=== PATIENT | female | born 1960 | race Caucasian/White ===

== ENCOUNTER 2016-11-06 00:42 | Inpatient (IN) | payer MEDICARE, OTHER ==
--- NOTE | ~2016-11-06 | DS ---
Discharge Summary [facility] [address] [place]. [address] NAME: JAUN LOCKHART : 56 STATUS : DIS IN PAT#: [id number] AGE: 56 ADM/REG DATE : 11/06/16 MR#: [id number] REPORT SERV DATE: 11/10/16 DICTATED BY: JR. BENNETT WILLIAM JOHN DATE: 11/09/16 REPORT STATUS : Draft TRANSCRIBED BY: TORIN DATE: 11/09/16 ADMISSION DATE: 11/06/2016 DISCHARGE DATE: 11/09/2016 DISCHARGE DIAGNOSES: 1. Partial small bowel obstruction with history of multiple abdominal surgeries. 2. Chest pain secondary to bowel obstruction. 3. Hypoxic respiratory failure with a history of smoking and congestion. 4. Essential hypertension. 5. Noninsulin requiring diabetes mellitus with neuropathy and right great toe ulcer without evidence of infection deep to the bone. 6. Hypokalemia. OPERATIONS/PROCEDURES AND TREATMENTS: Include: 1. Abdominal CT done 11/06/2016, which showed appropriate position of enteric tube. There was suspected fluid-filled small bowel, without overlying gaseous distended small bowel loops that are not significantly changed from prior CT done 10 hours earlier when there was fluid filled small bowel loops that appeared mildly obstructed. 2. Chest x-ray done 11/06/2016 showed no evidence of acute issues. 3. CT of the abdomen and pelvis which showed early or partial small bowel obstruction involving proximal intestine with transition point in left upper quadrant. There is well-circumscribed fluid-filled density measuring 4.4 cm in the right breast. There are bilateral renal cysts. 4. CT angiogram done 11/06/2016, which showed no pulmonary embolism with a mild degree of pulmonary venous hypertension. There is a cystic lesion in the right breast and NG tube in place. 5. KUB done 11/06/2016, which showed NG tube in good position. 6. Small-bowel follow-through done 11/06/2016 which showed mildly distended proximal small bowel loops; however, there was no functional obstruction demonstrated in the colon which was reached within 45 minutes. 7. Flat and upright abdominal x-ray done 11/07/2016, which showed a nonspecific gas pattern with contrast throughout the colon. DISCHARGE MEDICATIONS: Include: 1. Xanax 1 mg orally three times a day. 2. Aspirin 325 mg orally daily. 3. Lipitor 10 mg orally daily. 4. Benazepril 40 mg orally twice a day. 5. Coreg 25 mg orally twice a day. 6. Flexeril 10 mg every eight hours. 7. Zetia 10 mg orally at bedtime. 8. Morphine SR 30 mg orally three times a day. 9. Immediate release morphine 15 mg as needed for breakthrough pain. 10.Lyrica 150 mg orally daily. 11.Hydralazine 25 mg orally three times a day. 12.Janumet 50/500 one tablet twice a day. Discharge Summary [address] [address] NAME: JAUN LOCKHART : 56 STATUS : DIS IN PAT#: [id number] AGE: 56 ADM/REG DATE : 11/06/16 MR#: [id number] REPORT SERV DATE: 11/10/16 DICTATED BY: JR. BENNETT WILLIAM JOHN DATE: 11/09/16 REPORT STATUS : Draft TRANSCRIBED BY: TORIN DATE: 11/09/16 13.Nexium 40 mg orally daily. 14.Nitroglycerin as needed. 15.Mucinex 1200 mg orally twice a day for 14 days. 16.Combivent two puffs four times a day for one month. HOSPITAL COURSE: The patient is a 56-year-old white female with a history of multiple abdominal surgeries, who presented to the emergency room with complaint of chest pain, abdominal pain, nausea, and vomiting. The patient stated that several days prior she had been in considerable discomfort from sinus congestion and pressure as well as sinus headache. She got rid of that on Saturday night and then awakened Saturday morning with severe epigastric and left upper quadrant pain with radiation to the umbilicus associated with nausea, vomiting, and subsequently substernal and left-sided chest pain. Initial evaluation in the emergency room showed nonischemic EKG with negative cardiac enzymes. CT of the abdomen and pelvis as detailed above. For full details of the presenting history, physical, and presenting data, please see Dr. Velásquez's most excellent dictated history and physical. The patient was admitted to the hospital for a small-bowel obstruction. She had an NG tube placed to low intermittent wall suction, was seen by General Surgery, and subsequently underwent a small-bowel follow-through, which showed no evidence of obstruction. The patient's diet was gradually increased. She tolerated the diet, had no further issues. At discharge, the patient is tolerating an ADA diet without difficulty. Regarding the chest pain, this resolved with NG tube placement and decompression. She had serial cardiac enzymes all of which were negative and had no further complaints of this after the NG and decompression were completed. Regarding the patient's diabetes and toe ulcer, the right great toe does have a plantar ulcer that is deep to the bone. There is no evidence of infection. [facility], and I will defer further management to them. Regarding hypoxic respiratory failure, the patient has a history of smoking as well as an upper respiratory infection. She was on oxygen throughout good portion of the hospitalization but with good pulmonary hygiene including incentive spirometry and mucolytics as well as bronchodilators. The patient was saturating at 94% on room air. She will be discharged home with Mucinex and Combivent for short-term use. The patient will be discharged home today 11/09/2016. She will [facility] up with [facility] as scheduled. Follow up with Dr. Robertson, whom she identifies as her primary care physician. DISCHARGE DIET: ADA. ACTIVITY: As tolerated. For discharge exam and laboratory, please see daily progress note. This discharge took 32 minutes for patient encounter, coordination of care, and Discharge Summary [address] [address] NAME: JAUN LOCKHART : 56 STATUS : DIS IN PAT#: [id number] AGE: 56 ADM/REG DATE : 11/06/16 MR#: [id number] REPORT SERV DATE: 11/10/16 DICTATED BY: JR. BENNETT WILLIAM JOHN DATE: 11/09/16 REPORT STATUS : Draft TRANSCRIBED BY: TORIN DATE: 11/09/16 documentation. WJF/TORIN Fito Bennett Jr, MD / [id number] CC: Fito Bennett Jr, MD Oana L. Andreescu, M.D.
--- NOTE | ~2016-11-06 | HP ---
History And Physical [facility] [address] [place]. [address] NAME: JAUN LOCKHART : 56 STATUS : REG ER PAT#: [id number] AGE: 56 ADM/REG DATE : 11/06/16 MR#: [id number] REPORT SERV DATE: 11/06/16 DICTATED BY: MARTA BAZZI DATE: 11/06/16 REPORT STATUS : Draft TRANSCRIBED BY: MODBear DATE: 11/06/16 DATE OF ADMISSION: 11/06/2016 POINT OF ENTRY: [facility] Emergency Department. CHIEF COMPLAINT: Chest pain, abdominal pain, nausea, and vomiting. HISTORY OF PRESENT ILLNESS: Ms Lockhart is a 56-year-old female with a history of coronary artery disease with prior coronary artery bypass grafting; peripheral vascular disease; non- insulin-dependent diabetes mellitus, type 2; chronic pain on chronic narcotics, who presents to the emergency department today with multiple complaints including chest pain, abdominal pain, as well as nausea and vomiting. The patient states that on Saturday she had a considerable discomfort from some sinus congestion and pressure as well as the related sinus headache. She finally got rid of that on Saturday night. Upon awakening Saturday morning she had severe epigastric and left upper quadrant abdominal pain with radiation to around the umbilicus with associated nausea and vomiting. The patient also reports that she subsequently developed substernal and left- sided chest pain, as well as pressure with radiation to her back between her shoulder blades. The patient reports her last bowel movement was on Saturday, but was continued to pass flatus throughout the day on Saturday. Initial evaluation in the emergency department notable for an EKG as well as cardiac enzymes that were nonischemic. Labs were unremarkable except for a mild white count elevation of 12,700. CT scan of the abdomen and pelvis showed an early developing partial small bowel obstruction as well as a fluid density of the right breast soft tissue, subsequently an NG tube was placed and greater than 1.5 L of fluid have been removed. The patient states that subsequent to NG tube placement and gastric decompression, the patient's chest and abdominal pain have now completely resolved as her nausea and vomiting. REVIEW OF SYSTEMS: Comprehensive review of systems otherwise negative unless listed in history of present illness. The patient's specifically denies any recent fevers, night sweats, chills, cough, sputum production, shortness of breath, diarrhea, constipation, dysuria, lower extremity edema, melena, hematochezia, or hemoptysis. PREVIOUS MEDICAL HISTORY: 1. Coronary artery disease with prior coronary artery bypass grafting. 2. Breast cancer, status post right lumpectomy. 3. Mkn-atcjkno-izydtspjz mellitus type 2. 4. Diabetic peripheral neuropathy. 5. Chronic diabetic foot ulcer. 6. Chronic kidney disease, stage 3. 7. Osteoarthritis. 8. Degenerative disk disease. 9. Chronic pain on chronic narcotics. History And Physical [address] [address] NAME: JAUN LOCKHART : 56 STATUS : REG ER PAT#: [id number] AGE: 56 ADM/REG DATE : 11/06/16 MR#: [id number] REPORT SERV DATE: 11/06/16 DICTATED BY: MARTA BAZZI DATE: 11/06/16 REPORT STATUS : Draft TRANSCRIBED BY: TORIN DATE: 11/06/16 10.Peripheral vascular disease. 11.Gastroesophageal reflux disease. SURGICAL HISTORY: 1. Coronary artery bypass grafting. 2. Right femoral bypass. 3. Sinus surgery. 4. Abdominal hysterectomy. 5. Tonsillectomy. 6. Cholecystectomy. 7. Right breast lumpectomy. 8. Coronary artery bypass grafting. ALLERGIES: 1. AUGMENTIN. 2. MORPHINE AND BETA. 3. CEFPROZIL. 4. CODEINE. 5. HYDROCODONE. HOME MEDICATIONS: 1. Xanax 1 mg t.i.d. 2. Aspirin 325 mg daily. 3. Atorvastatin 10 mg q.h.s. 4. Benazepril 40 mg b.i.d. 5. Carvedilol 25 mg b.i.d. 6. Flexeril 10 mg q.8 hours. 7. Nexium 40 mg daily. 8. Zetia 10 mg q.h.s. 9. Hydralazine 25 mg t.i.d. 10.Probiotic one tablet daily. 11.MS Contin 30 mg t.i.d. 12.Morphine Immediate Release 15 mg daily p.r.n. 13.Lyrica 150 mg q.h.s. 14.Janumet 50-500 mg one tablet b.i.d. 15.Nitroglycerin sublingual p.r.n. SOCIAL HISTORY: Still continues to smoke about five cigarettes a day. Denies any alcohol. Denies any illicits. FAMILY MEDICAL HISTORY: Mother with diabetes and coronary artery disease. Father with Alzheimer's and hypertension. Siblings with hypertension. LABS AND IMAGIN. White count is 12.7, hemoglobin is 16.1, hematocrit is 47.4, platelet count 304, and INR 1.0. 2. Sodium is 139, potassium 3.9, chloride 101, carbon dioxide 26, BUN 9, creatinine 1.12, History And Physical [address] [address] NAME: JAUN LOCKHART : 56 STATUS : REG ER PAT#: [id number] AGE: 56 ADM/REG DATE : 11/06/16 MR#: [id number] REPORT SERV DATE: 11/06/16 DICTATED BY: MARTA BAZZI DATE: 11/06/16 REPORT STATUS : Draft TRANSCRIBED BY: MODBear DATE: 11/06/16 glucose is 140, calcium is 9.4, magnesium is 1.8, protein is 8.8, albumin is 3.9, bilirubin is 0.4, ALT is 10, AST 8, and alkaline phosphatase is 109. 3. Lipase is 162. 4. Troponin less than 0.02. 5. Chest x-ray per my review shows no acute cardiopulmonary abnormality. 6. EKG per my review shows normal sinus rhythm with no evidence of any acute ischemia or infarction. 7. CT scan of the abdomen and pelvis shows an early partial small bowel obstruction as well as a fluid density in the right breast soft tissue measuring 4.3 cm. PHYSICAL EXAMINATION: VITAL SIGNS: Temperature is 98.2 degrees Fahrenheit, pulse is 88, respirations 16, saturating 92% on room air, and blood pressure is 183/98. On recheck, it is now 160/104. GENERAL: The patient is awake, alert, and in no acute distress. Resting comfortably in bed. She is a well-developed, well-nourished, female. HEENT: Atraumatic and normocephalic. Moist mucous membranes. Pupils equal, round, reactive to light and accommodation. Extraocular eye movements are intact. No scleral icterus. NG tube is currently in place draining yellow-gastric secretions. NECK: No jugular venous distention. No carotid bruits. CARDIAC: Regular rate and rhythm. No murmurs or gallops. Normal S1, S2. LUNGS: Clear to auscultation bilaterally. No wheezes, rhonchi, or crackles. ABDOMEN: Obese, soft, she is mildly tender to palpation over the epigastrium. Otherwise, no rebound, guarding, or rigidity. EXTREMITIES: Warm and perfused. No cyanosis, clubbing, or edema. Her left great toe is currently wrapped in bandage. Does have some evidence of chronic venous stasis as well as chronic ischemic changes. SKIN: Warm and dry except for noted above. PSYCH: Affect appropriate. NEURO: Alert and oriented x3. Cranial nerves 2 through 12 grossly intact. Speech is normal. Gait not assessed. ASSESSMENT AND PLAN: Ms. Lockhart is a 56-year-old female, who presents with a one-day history of chest pain, abdominal pain, as well as nausea and vomiting, found to have evidence of partial small bowel obstruction. PROBLEM LIST: 1. Partial small bowel obstruction. 2. Chest pain. 3. Leukocytosis. 4. Uncontrolled hypertension. 5. Irw-zlcqgfs-narhvenlh diabetes mellitus type 2 with peripheral neuropathy and diabetic foot wound. PLAN: 1. Partial small bowel obstruction. The patient already had gastric decompression with NG tube placement. Her abdominal pain, nausea, vomiting significantly improved. We will continue IV fluid hydration as well as surgical consultation for assistance with History And Physical [address] [address] NAME: JAUN LOCKHART : 56 STATUS : REG ER PAT#: [id number] AGE: 56 ADM/REG DATE : 11/06/16 MR#: [id number] REPORT SERV DATE: 11/06/16 DICTATED BY: MARTA BAZZI DATE: 11/06/16 REPORT STATUS : Draft TRANSCRIBED BY: MODBear DATE: 11/06/16 management of her partial small bowel obstruction. 2. Chest pain. I suspect the patient's chest pain was related to her partial small bowel obstruction and gastric distention as it also resolved status post NG tube placement for gastric decompression. However, her description of her chest pain with radiation to the back as well as in the setting of uncontrolled hypertension does make me concern for potential aortic dissection or pulmonary embolism. As such, we will check a CTA of the chest as well as continue to trend out cardiac enzymes. 3. Leukocytosis likely stress response. Chest x-ray is clear. We will check a urinalysis. 4. Yvi-saslvbz-zntwbcmdw diabetes mellitus type 2 with peripheral neuropathy and diabetic foot wound. We will consult wound care nurses for assistance with management of the patient's chronic left great toe diabetic wound. 5. Hypertension. The patient had uncontrolled hypertension here in the emergency department. I suspect this is mainly due to abdominal pain. Her pressure is now improved status post gastric decompression. We will continue the patient's home medications, and IV hydralazine p.r.n. for elevated blood pressure. 6. DVT prophylaxis. Lovenox subcu. CODE STATUS: The patient wished to be full code. ADIA/TORIN Marta Bazzi MD / [id number] CC: Rylie Robertson M.D.
--- NOTE | ~2016-11-06 | CN ---
Consultation Report [facility] [address] [place]. [address] NAME: JAUN LOCKHART : 56 STATUS : ADM IN [facility]#: [id number] AGE: 56 ADM/REG DATE : 11/06/16 MR#: [id number] REPORT SERV DATE: 11/07/16 DICTATED BY: EVANGELINA LEROY DATE: 11/06/16 REPORT STATUS : Draft TRANSCRIBED BY: MODL DATE: 11/06/16 SURGERY CONSULTATION NOTE DATE OF CONSULTATION: 11/06/2016 REASON FOR CONSULTATION: Consultation is requested regarding abdominal pain. HISTORY OF PRESENT ILLNESS: Ms. Lockhart is a 56-year-old female with a previous history of abdominal surgery. She began having epigastric and left upper quadrant abdominal pain that began approximately 24 hours ago. This was accompanied by nausea and vomiting. She also developed substernal and left chest pain that radiated to her back. This prompted her evaluation by the emergency room. Cardiac evaluation was nonischemic. A nasogastric tube was placed, approximately 1.5 L was returned, and this resulted for chest pain. CT scan of the abdomen and pelvis was reviewed. This reveals stomach and proximal small-bowel dilation with possible transition point in the left upper quadrant and jejunum. She states she passed flatus frequently yesterday. Her last bowel movement was yesterday evening before the pain began. She does have a history of constipation and denies fever or chills. Surgery was asked to evaluate the patient secondary to partial small-bowel obstruction. REVIEW OF SYSTEMS: A 12-point inventory body systems reviewed and found to be positive for the symptoms that are listed in the history of present illness. Additionally, she has peripheral vascular disease and a diabetic foot ulcer on the left plantar aspect of her first toe; it was otherwise negative. PAST MEDICAL HISTORY AND PAST SURGICAL HISTORY: Includes hypertension, coronary artery disease, previous history of a CABG, CHF, gastroesophageal reflux disease, right breast cancer, status post right lumpectomy, cholecystectomy, chronic kidney disease, peripheral vascular disease with a chronic toe ulcer, diabetes, peripheral neuropathy, chronic pain for which she takes narcotics, arthritis, tonsillectomy, adenoidectomy, sinus surgery, total abdominal hysterectomy, back surgery, and a right femoral bypass. SOCIAL HISTORY: Patient smokes approximately five cigarettes per day. She is a retired nurse. FAMILY HISTORY: Positive for mother with diabetes, coronary artery disease and a father with Alzheimer's and hypertension. She has a sibling with hypertension. ALLERGIES: INCLUDE AUGMENTIN, MORPHINE, CEFPROZIL, CODEINE, AND HYDROCODONE. MEDICATIONS: Her medications were reviewed as per the medical record. PHYSICAL EXAMINATION: VITAL SIGNS: Blood pressure 168/93, temperature is 98.2, heart rate is 90, oxygen saturation 94% on room air. Consultation Report [address] [address] NAME: JAUN LOCKHART : 56 STATUS : ADM IN PAT#: [id number] AGE: 56 ADM/REG DATE : 11/06/16 MR#: [id number] REPORT SERV DATE: 11/07/16 DICTATED BY: EVANGELINA LEROY DATE: 11/06/16 REPORT STATUS : Draft TRANSCRIBED BY: TORIN DATE: 11/06/16 GENERAL: Patient is awake and alert, sitting in bed. She is in no acute distress. HEENT: Normocephalic, atraumatic. Pupils are equal, round, reactive to light. Sclerae are anicteric. There is a nasogastric tube in place. She has moist mucous membranes. NECK: Supple. LUNGS: Clear to auscultation with equal breath sounds. Respirations are nonlabored. HEART: Regular rate and rhythm. ABDOMEN: Soft. It is nontender. It is nondistended. There are bowel sounds. EXTREMITIES: There is a left first toe plantar ulcer, for which she is seeing Dr. Meza. NEUROLOGICAL: No gross motor or sensory deficits are elicited on examination. LABORATORY DATA: Available laboratory data were reviewed in full. Of note, white blood cell count is 12.7. Hematocrit is 47. INR is 1. Potassium is 3.9. BUN is 9. Creatinine is 1.12. Glucose is 140. LFTs are normal. RADIOGRAPHIC DATA: CT scan of the abdomen and pelvis was reviewed by me. ASSESSMENT AND PLAN: Ms. Lockhart has a partial small-bowel obstruction, for which she experienced relief with the nasogastric tube. We will obtain a small-bowel follow-through with hyperosmotic contrast today. Recommend continued n.p.o. IV fluid resuscitation to alleviate dehydration. We would recommend wound care consult for her toe. Assessment and plan has been discussed with the attending physician, Dr. Evangelina Leroy, who is in agreement at this time. DICTATED BY: MD VANESSA Holcomb/TORIN Evangelina Leroy MD / [id number] CC: MD Rylie Dyer M.D.
[~2016-11-06 00:42] MED LIST: AMERIGEL TOP; APRES25 PO; ASA5GR PO; ASAB PO; AVINZA60 PO; BLACK COHOSH PO; CO Q-10200 MG PO; COREG25 PO; EMBEDA1 CA1 PO; FISH-EPA1000 MG PO; FLAG500TAB PO; FLEX PO; JANUMET1 TAB PO; KADIANSR30 PO; L20 PO; L40 PO; LEVAQUIN750 MG PO; LIPITOR10 PO; LOTE20 PO; LOTE40 PO; LYRICA150 MG PO; MAGONATE PO; MIRALAXPKT PO; NEUR600 PO; NEXIUM40 PO; NIASPAN500 PO; PERCOCET1 TA2 PO; POT GLUCONAT595 M1 OR; PR25 PO; PRILO PO; SANTYL250 MG/GM TOP; SSD 1% TOP; XANAX1 MG PO; ZETIA PO; [UNRECOGNIZED DRUG - OTHER] PO; [UNRECOGNIZED DRUG - OTHER] PO; [UNRECOGNIZED DRUG - OTHER] TOP; [UNRECOGNIZED DRUG - OTHER] TOP
[2016-11-06 01:52] LABS: BASOPHILS 0.2 %; BASOPHILS ABSOLUTE 0.02 10/3/uL (0.0-0.16); EOSINOPHILS 0.9 %; EOSINOPHILS ABSOLUTE 0.12 10/3/uL (0.0-0.53); HEMATOCRIT 47.4 % (36.0-48.0); HEMOGLOBIN 16.1 g/dL (12.0-16.0); IMMATURE GRANULOCYTES 0.4 %; IMMATURE GRANULOCYTES ABSOLUTE 0.05 10/3/uL (0.0-0.11); LYMPHOCYTES 8.5 %; LYMPHOCYTES ABSOLUTE 1.08 10/3/uL (0.67-4.30); MEAN CORPUSCULAR VOLUME 91.2 fL (80-100); MEAN PLATELET VOLUME 10.1 fL (9.2-13.0); MONOCYTES 6.1 %; MONOCYTES ABSOLUTE 0.78 10/3/uL (0.21-1.20); NEUTROPHILS 83.9 %; NEUTROPHILS ABSOLUTE 10.69 10/3/uL (2.02-8.40); PLATELET COUNT 304 10/3/uL (150-400); WHITE BLOOD CELLS 12.7 10/3/uL (4.5-10.5)
[2016-11-06 01:53] LABS: ER CBC TAT 0 Hrs 08 MinsNP; MANUAL DIFF NO %
[2016-11-06 01:58] LABS: PARTIAL THROMBO TIME 29.2 SEC (22.5-37.2); PROTIME (NOT ORD) 13.2 SEC (12.0-14.5)
[2016-11-06 02:16] LABS: ALBUMIN 3.9 G/DL (3.5-5.0); BUN (BLOOD UREA NITROGEN) 9 MG/DL (6-23); CALCIUM, SERUM 9.4 MG/DL (8.5-10.4); CHLORIDE, SERUM 101 MMOL/L (96-112); CO2 (CARBON DIOXIDE) 26 MMOL/L (24-34); CREATININE 1.12 MG/DL (0.55-1.02); GFR AFRICAN AMERICAN 63 ML/MIN (>=60); GFR NON AFRICAN AMERICAN 54 ML/MIN (>=60); GLUCOSE, SERUM 140 MG/DL (60-99); POTASSIUM, SERUM 3.9 MMOL/L (3.5-5.3); SGOT(AST) 8 U/L (5-40); SGPT(ALT) 10 U/L (5-65); SODIUM, SERUM 139 MMOL/L (135-148); TOTAL BILIRUBIN 0.4 MG/DL (0-1.2); TROPONIN I <0.02 NG/ML (<0.05)
[2016-11-06 02:18] LABS: ALKALINE PHOSPHATASE 109 U/L (45-117); DIRECT BILIRUBIN < 0.1 MG/DL (0.0-0.4); INDIRECT BILIRUBIN(NOT ORDER) 0.3 MG/DL (0.1-0.9); TOTAL PROTEIN 8.8 G/DL (6.0-8.5)
[2016-11-06 02:19] LABS: CHEST PAIN PROFILE TAT 0 Hrs 32 Mins
[2016-11-06] MEDS ORDERED: MSCONTIN PO (03:53)
[2016-11-06] MEDS ORDERED: MSIMMR15 PO (03:54)
[2016-11-06] MEDS ORDERED: JANUMET 50/500 PO (03:55)
[2016-11-06] MEDS ORDERED: XANAX1 MG PO (03:57)
[2016-11-06] MEDS ORDERED: LOTE40 PO (03:59)
[2016-11-06] MEDS ORDERED: ASABAYER PO (04:01)
[2016-11-06] MEDS ORDERED: COREG25 PO (04:01)
[2016-11-06] MEDS ORDERED: ZETIA PO (04:03)
[2016-11-06] MEDS ORDERED: NEXIUM40 PO (04:03)
[2016-11-06] MEDS ORDERED: LIPITOR10 PO (04:04)
[2016-11-06] MEDS ORDERED: LYRICA150 MG PO (04:06)
[2016-11-06] MEDS ORDERED: FLEX PO (04:07)
[2016-11-06] MEDS ORDERED: PROBIOTIC PO (04:07)
[2016-11-06] MEDS ORDERED: NITROGLYCERIN SPRAY SL (04:07)
[2016-11-06] MEDS ORDERED: APRES25 PO (04:08)
[2016-11-06 09:38] LABS: CPK 82 U/L (0-200); TROPONIN I <0.02 NG/ML (<0.05)
[2016-11-06 09:40] LABS: CK-MB 1.2 NG/ML
[2016-11-06 16:03] LABS: CPK 64 U/L (0-200); TROPONIN I <0.02 NG/ML (<0.05)
[2016-11-06 16:06] LABS: CK-MB 1.7 NG/ML
[2016-11-06 19:52] LABS: ASCORBIC ACID (UR NOT ORDER) NEG (NEG); BILIRUBIN, URINE NEGATIVE (NEG); KETONE, URINE NEGATIVE (NEG); LEUKOCYTE ESTERASE(NOT OR NEG (NEG); WBC (NOT ORDERED) (RFLEX) 1 (0-5)
[2016-11-07 05:42] LABS: BASOPHILS 0.3 %; BASOPHILS ABSOLUTE 0.03 10/3/uL (0.0-0.16); EOSINOPHILS ABSOLUTE 0.12 10/3/uL (0.0-0.53); HEMOGLOBIN 13.4 g/dL (12.0-16.0); IMMATURE GRANULOCYTES 0.3 %; IMMATURE GRANULOCYTES ABSOLUTE 0.03 10/3/uL (0.0-0.11); LYMPHOCYTES 16.4 %; LYMPHOCYTES ABSOLUTE 1.91 10/3/uL (0.67-4.30); MEAN CORPUS HGB CONC 32.6 g/dL (32.0-36.0); MEAN CORPUSCULAR HEMOGLOB 29.8 pg (26.0-34.0); MEAN CORPUSCULAR VOLUME 91.5 fL (80-100); MONOCYTES 9.2 %; MONOCYTES ABSOLUTE 1.07 10/3/uL (0.21-1.20); NEUTROPHILS 72.8 %; NEUTROPHILS ABSOLUTE 8.47 10/3/uL (2.02-8.40); PLATELET COUNT 249 10/3/uL (150-400); RBC DISTRIBUTION WIDTH 14.5 % (12.0-16.0); RED CELL COUNT 4.49 10/6/uL (4.0-5.6); WHITE BLOOD CELLS 11.6 10/3/uL (4.5-10.5)
[2016-11-07 05:48] LABS: HEMATOCRIT 41.1 % (36.0-48.0); MANUAL DIFF NO %
[2016-11-07 05:56] LABS: BUN (BLOOD UREA NITROGEN) 12 MG/DL (6-23); CALCIUM, SERUM 8.9 MG/DL (8.5-10.4); CHLORIDE, SERUM 108 MMOL/L (96-112); CO2 (CARBON DIOXIDE) 25 MMOL/L (24-34); CREATININE 1.08 MG/DL (0.55-1.02); GFR AFRICAN AMERICAN 66 ML/MIN (>=60); GFR NON AFRICAN AMERICAN 57 ML/MIN (>=60); GLUCOSE, SERUM 90 MG/DL (60-99); POTASSIUM, SERUM 3.9 MMOL/L (3.5-5.3); SODIUM, SERUM 142 MMOL/L (135-148)
[2016-11-09] MEDS ORDERED: MUCINEX1200 MG PO (10:27)
[2016-11-09] MEDS ORDERED: COMBIVENT RESPIM4 GM INH (10:28)
[2016-12-18] MEDS ORDERED: NEXIUM40 PO (11:19)
[2017-03-19] MEDS ORDERED: JANUMET XR 50-1 EACH PO (13:46)
[2017-03-19] MEDS ORDERED: ASAB PO (13:48)
[2017-03-19] MEDS ORDERED: LOTE40 PO (13:49)
[2017-03-19] MEDS ORDERED: ASA5GR PO (14:09)
[2017-03-19] MEDS ORDERED: MSIMMR15 PO (14:11)
[2017-03-19] MEDS ORDERED: ZETIA PO (14:37)
[2017-03-19] MEDS ORDERED: CENTRUM PO (14:40)
[2017-03-19] MEDS ORDERED: NITROSTAT0.4 MG SL (14:41)
[2017-03-19] MEDS ORDERED: MIRALAX POWDER1 PKT PO (14:41)
[2017-03-19] MEDS ORDERED: LIPITOR10 PO (14:43)
[2017-03-19] MEDS ORDERED: CO Q-10200 MG PO (14:44)
[2017-03-19] MEDS ORDERED: IMDUR30 PO (14:44)
== END 2016-11-09 14:05 | disposition home or self-care (01) | DRG 388 ==
LOC: ER 00:42 → 2SO 06:24
PROVIDERS: Internal Medicine; Specialist
DX: K56.60 Unspecified intestinal obstruction (principal); J96.91 Respiratory failure, unspecified with hypoxia; E11.40 Type 2 diabetes mellitus with diabetic neuropathy, unspecified; E11.621 Type 2 diabetes mellitus with foot ulcer; R07.9 Chest pain, unspecified; I25.10 Atherosclerotic heart disease of native coronary artery without angina pectoris; I73.9 Peripheral vascular disease, unspecified; F17.210 Nicotine dependence, cigarettes, uncomplicated; G89.29 Other chronic pain; N18.3 Chronic kidney disease, stage 3 (moderate); I12.9 Hypertensive chronic kidney disease with stage 1 through stage 4 chronic kidney disease, or unspecified chronic kidney disease; K21.9 Gastro-esophageal reflux disease without esophagitis; M19.90 Unspecified osteoarthritis, unspecified site; E87.6 Hypokalemia; E86.0 Dehydration; Z79.4 Long term (current) use of insulin; Z95.1 Presence of aortocoronary bypass graft; Z85.3 Personal history of malignant neoplasm of breast; Z83.3 Family history of diabetes mellitus; Z88.1 Allergy status to other antibiotic agents; Z88.5 Allergy status to narcotic agent; Z88.8 Allergy status to other drugs, medicaments and biological substances; Z82.49 Family history of ischemic heart disease and other diseases of the circulatory system; Z87.891 Personal history of nicotine dependence
CPT/HCPCS: 71010; 71275; 74000; 74020; 74176; 74250; 80048; 80076; 81001; 82550; 82553; 82962; 83690; 83735; 84484; 85025; 85610; 85730; 87070; 87205; 93005; 94640; 96374; 96375; 99285; A9270-GY; J0360; J1170; J2405; Q9967

== ENCOUNTER 2016-12-19 11:48 | Observation (INO) | payer MEDICARE, OTHER ==
--- NOTE | ~2016-12-19 | OP ---
Record Of Operation [facility] [address] [place]. [address] NAME: JAUN LOCKHART : 56 STATUS : ADM Wilson PAT#: [id number] AGE: 56 ADM/REG DATE : 12/19/16 MR#: [id number] REPORT SERV DATE: 12/19/16 DICTATED BY: JA BANERJEE DATE: 12/19/16 REPORT STATUS : Draft TRANSCRIBED BY: MODL DATE: 12/19/16 DATE OF PROCEDURE: 12/19/2016 PREOPERATIVE DIAGNOSIS: Poor healing left toe ulcer with peripheral arterial disease. POSTOPERATIVE DIAGNOSES: 1. Severe atherosclerotic disease with bilateral renal artery stenosis. 2. Occlusion of the left SFA with reconstitution of popliteal with single-vessel runoff through the peroneal. 3. Significant stenosis of the right popliteal below a [id number] bypass, 80% to 90% with single-vessel runoff. SURGERY PERFORMED: 1. Aortogram. 2. Bilateral lower extremity runoffs. 3. Right popliteal atherectomy followed by a balloon angioplasty using a 4 x 120 drug- eluting balloon. 4. Bilateral femoral catheters. [employer]: [place]. DESCRIPTION OF PROCEDURE: The patient was placed under IV sedation. Both groins were prepped and draped in a sterile fashion. The right femoral artery was first cannulated, was found to be severely calcified, which made this somewhat difficult, but was accomplished. A 5 sheath was placed. UF catheter placed into the abdominal aorta and the aortogram done showing that both renal arteries were diseased. On the right side, there was a single renal artery. There was poststenotic dilatation. The stenosis was out from the ostium probably 80%. The left side showing two small accessory renals. The upper renal appeared to be stenotic, but very small. The lower renal appeared to be grossly intact, but there was calcium at the origin. The aorta was irregular. Both iliacs looked adequate so for as being patent. The UF was pulled down into the distal aorta. Runoff films done showing on the right side that the common small iliac and external were patent. The femoral was open. The profunda bypass graft was patent. The popliteal showed significant stenosis below the bypass graft. The only runoff was through the posterior tibial artery. On the left side, the common and external iliac were patent. The common femoral profunda was patent. The SFA totally occluded, reconstituted above the knee, and then runoff was through the peroneal, went down to the ankle, and then split into the posterior and anterior tibial arteries. The SFA was flush occluded at the femoral. Using a UF catheter, it was manipulated up and over the bifurcation, selected films done of the common femoral showed a stenosis of the profunda probably 50%. Again, the SFA was flush occluded, could not see the origin of the SFA, therefore it was felt that this was not amenable to endovascular management. The UF catheter was pulled back up and around and then the sheath was left in the groin. The left femoral artery was then cannulated using ultrasound direction, needle, wire, and sheath were placed. UF catheter manipulated the wire up and over the bifurcation. Selected films done on the right side showing that the femoral-popliteal graft was patent. Distally below the bypass graft anastomosis there was stenosis just at the anastomosis below and then there Record Of Operation [place] [id number] [facility] [place]. [address] NAME: JAUN LOCKHART : 56 STATUS : ADM Wilson PAT#: [id number] AGE: 56 ADM/REG DATE : 12/19/16 MR#: [id number] REPORT SERV DATE: 12/19/16 DICTATED BY: JA BANERJEE DATE: 12/19/16 REPORT STATUS : Draft TRANSCRIBED BY: TORIN DATE: 12/19/16 were two other areas, one sort of at the femoral head and then there were two other areas worse, which was just above the tibial plateau estimated at 80% to 90%. This was felt to be a threat to her femoral popliteal graft, and therefore a wire was placed through the area. The 5 sheath was exchanged for a 6 sheath, an 0.014 wire placed through the popliteal. She is given 3000 units of heparin. Atherectomy then done with a 2.2 Maxwell device, this was passed three times. The post atherectomy film showing improvement, but there were still areas of residual stenosis. Therefore, this was then ballooned with a 4 x 120 drug-eluting balloon, this was done twice, and then the final film showing a few areas of mild to moderate stenosis, but the significant portion was relieved and it was determined that this would not be stented at this point in time. Therefore, the sheath was pulled back up and around to the groin. Films done showing the catheter in the femoral artery. Both sheaths were then removed. Pressure was held and pressure dressings were then applied. She received a little over 100 mL of contrast, was given fluid preoperatively, and will be given fluid postoperatively, and decision about returning for possible left femoral to popliteal bypass and determine whether or not she needs balloon angioplasty or stenting of her renal arteries. MG/MODL Ja Banerjee M.D. / [id number] CC: Reji Cline M.D.
[~2016-12-19 11:48] MED LIST changes: +ASABAYER PO; +COMBIVENT RESPIM4 GM INH; +JANUMET 50/500 PO; +MSCONTIN PO; +MSIMMR15 PO; +MUCINEX1200 MG PO; +NITROGLYCERIN SPRAY SL; +PROBIOTIC PO
[2016-12-20] MEDS ORDERED: PLAVIX PO (16:02)
[2017-03-19] MEDS ORDERED: JANUMET XR 50-1 EACH PO (13:46)
[2017-03-19] MEDS ORDERED: ASAB PO (13:48)
[2017-03-19] MEDS ORDERED: LOTE40 PO (13:49)
[2017-03-19] MEDS ORDERED: ASA5GR PO (14:09)
[2017-03-19] MEDS ORDERED: MSIMMR15 PO (14:11)
[2017-03-19] MEDS ORDERED: ZETIA PO (14:37)
[2017-03-19] MEDS ORDERED: CENTRUM PO (14:40)
[2017-03-19] MEDS ORDERED: NITROSTAT0.4 MG SL (14:41)
[2017-03-19] MEDS ORDERED: MIRALAX POWDER1 PKT PO (14:41)
[2017-03-19] MEDS ORDERED: LIPITOR10 PO (14:43)
[2017-03-19] MEDS ORDERED: CO Q-10200 MG PO (14:44)
[2017-03-19] MEDS ORDERED: IMDUR30 PO (14:44)
== END 2016-12-20 17:36 | disposition home or self-care (01) ==
LOC: SDC 11:48 → SDC/OF 14:32 → SSU1 19:15
PROVIDERS: Surgery Vascular Surgery
PROC: 04CM3ZZ Extirpation of Matter from Right Popliteal Artery, Percutaneous Approach (ICD-10-PCS; principal; 2016-12-19 11:45)
PROC: 047M3ZZ Dilation of Right Popliteal Artery, Percutaneous Approach (ICD-10-PCS; 2016-12-19 11:45)
DX: I70.211 Atherosclerosis of native arteries of extremities with intermittent claudication, right leg (principal); I12.9 Hypertensive chronic kidney disease with stage 1 through stage 4 chronic kidney disease, or unspecified chronic kidney disease; E11.22 Type 2 diabetes mellitus with diabetic chronic kidney disease; N18.3 Chronic kidney disease, stage 3 (moderate); I74.3 Embolism and thrombosis of arteries of the lower extremities; I25.10 Atherosclerotic heart disease of native coronary artery without angina pectoris; G47.33 Obstructive sleep apnea (adult) (pediatric); J44.9 Chronic obstructive pulmonary disease, unspecified; F17.210 Nicotine dependence, cigarettes, uncomplicated; K21.9 Gastro-esophageal reflux disease without esophagitis; Z95.1 Presence of aortocoronary bypass graft; Z88.1 Allergy status to other antibiotic agents; Z88.5 Allergy status to narcotic agent; Z88.8 Allergy status to other drugs, medicaments and biological substances; Z79.899 Other long term (current) drug therapy; Z90.89 Acquired absence of other organs; Z98.890 Other specified postprocedural states
CPT/HCPCS: 36247; 37225; 75625; 75716; 75774; 80048; 82962; 85025; 93005; 94640; 96372; 96374; A9270-GY; C1725; C1760; C1769; C1894; G0378; J0360; J2250; J2370; J3010; Q9967